=== PATIENT | female | born 1965 | race African-American/Black ===

== ENCOUNTER 2022-12-03 11:38 | Outpatient (CLI) | payer MEDICAID | END 2022-12-03 11:39 | disposition home or self-care (01) | LOC: CSHRAD 11:38 | PROVIDERS: ATTEND Family Medicine | DX: M79.674 Pain in right toe(s) (principal); S92.511A Displaced fracture of proximal phalanx of right lesser toe(s), initial encounter for closed fracture ==

== ENCOUNTER 2025-02-06 10:51 | Outpatient (CLI) | payer OTHER | END 2025-02-06 10:52 | disposition home or self-care (01) | LOC: CSHULT 10:51 | PROVIDERS: ATTEND Family Medicine | DX: G89.4 Chronic pain syndrome (principal); R93.6 Abnormal findings on diagnostic imaging of limbs | CPT/HCPCS: 93923 ==